=== PATIENT | female | born 1965 | race Caucasian/White ===

== ENCOUNTER 2019-09-18 20:28 | Emergency (ER) | payer OTHER ==
--- NOTE | 2019-09-18 20:40 | PDOC ---
Rapid Medical Evaluation Time Seen by Provider: 09/18/19 20:31 Medical Evaluation: 09/18/19 20:37 I performed a brief in-person evaluation of this patient. Pt is a 54 y/o female who presents to the ED with complaint of left lower gum pain for the last 2 days. She denies any fevers or drainage. The patient has a history of MS, HTN, HLD, depression and anxiety. Pertinent physical exam findings: No discrete abscess seen, no facial asymmetry I have ordered the following: none Patient to proceed to ED for further evaluation. Discharge Disposition - Diagnosis Pain of gingiva - Referrals - Patient Instructions - Post Discharge Activity
[2019-09-18 20:48] VITALS: BP 132/90; PULSE 113; TEMP 98; BMI 52.2
--- NOTE | 2019-09-18 21:05 | PDOC ---
History of Present Illness - General Chief Complaint: Pain Stated Complaint: GUM PAIN Time Seen by Provider: 09/18/19 20:31 History Source: Patient Exam Limitations: No Limitations - History of Present Illness Initial Comments: 09/18/19 21:02 54-year-old female presents to the ED with intermittent left lower quadrant swelling and tooth pain since . Patient tried calling her dentist but was unable to see her. Patient denies fever but does state discomfort with movement. Patient states has taken penicillin VK in the past and responded well to it. Is this a multiple visit Asthma Patient?: No Timing/Duration: unsure Severity: mild Associated Symptoms: reports: denies symptoms Past History - Travel History Traveled outside of the country in the last 30 days: No Close contact w/someone who was outside of country & ill: No - Medical History Allergies/Adverse Reactions: Allergies Allergy/AdvReac Type Severity Reaction Status Date / Time No Known Allergies Allergy Verified 09/18/19 20:40 COPD: No HTN: Yes Psychiatric Problems: Yes (Depression, anxiety) Other medical history: Multiple Sclerosis - Surgical History Cholecystectomy: Yes - Psycho-Social/Smoking History Lives with/in: parents Smoking History: Never smoked - Substance Abuse Hx (Audit-C & DAST Scrn) How often the patient has a drink containing alcohol: Never Score: In Men: 4 or > Positive; In Women: 3 or > Positive: 0 Screen Result (Pos requires Nsg. Audit-10AR): Negative Review of Systems - Review of Systems Able to Perform ROS?: No Constitutional: No: Symptoms Reported HEENTM: Yes: Mouth Pain, Dental Problems Cardiac (ROS): No: Symptoms Reported Integumentary: Yes: Lumps Neurological: No: Symptoms reported *Physical Exam - Vital Signs Last Vital Signs Temp Pulse Resp BP Pulse Ox 98 F 113 H 20 132/90 97 09/18/19 20:41 09/18/19 20:41 09/18/19 20:41 09/18/19 20:41 09/18/19 20:41 - Physical Exam General Appearance: Yes: Nourished, Appropriately Dressed. No: Apparent Distress HEENT: positive: Other (Noted small raised area to the mandible region of the left lower quadrant oral cavity intact with no obvious abscess or decay/broken teeth. ). negative: Pale Conjunctivae Neck: positive: Lymphadenopathy (L) (Upper cervical) Respiratory/Chest: positive: Lungs Clear, Normal Breath Sounds. negative: Respiratory Distress, Accessory Muscle Use Cardiovascular: positive: Regular Rhythm, Tachycardia. negative: Murmur Integumentary: positive: Swelling Neurologic: positive: Motor Strength 5/5 (Ambulatory) Medical Decision Making - Medical Decision Making 09/18/19 21:03 Chief complaint: Dental pain with lump intermittently since . Unable to see dentist. Exam. Patient with noted small firm area to the left mandible left lower quadrant region oral cavity intact. Plan: Patient will be given prescription for Pen-Vee K and follow-up with a dentist next week Discharge - Discharge Information Problems reviewed: Yes Clinical Impression/Diagnosis: Abscess Condition: Good Disposition: HOME - Follow up/Referral Referrals: Edwin Vázquez MD [Primary Care Provider] - - Patient Discharge Instructions Patient Printed Discharge Instructions: Tooth Abscess Additional Instructions: Please take medication as prescribed. Please gargle with warm salt water. Avoid eating on that side. Follow-up with your dentist. - Post Discharge Activity
== END 2019-09-18 21:08 | disposition home or self-care (01) ==
LOC: JERFT 20:28 → JER 20:28 → JERFT 21:08
DX: K08.89 Other specified disorders of teeth and supporting structures (principal)
CPT/HCPCS: 99282-25

== ENCOUNTER 2021-05-15 05:15 | Day surgery (SDC) | payer OTHER ==
[2021-05-09 18:00] VITALS: BMI 34.3
[2021-05-15] MEDS ORDERED: PROPOFOL 20 ML ONE ×4 (10:14→11:06)
[2021-05-15] MEDS ORDERED: MIDAZOLAM HCL 2 MG/2 ML SINGLE DOSE VIAL ONE (10:14)
[2021-05-15] MEDS ORDERED: ceFAZolin SODIUM 1 GM VIAL IVPB ONE (10:30)
[2021-05-15] MEDS ORDERED: ELECTROLYTE-148 SOLN 1,000 ML IV SCH (11:00)
[2021-05-15 12:33] VITALS: BP 135/60; PULSE 65; TEMP 97.4
== END 2021-05-15 12:45 | disposition home or self-care (01) ==
LOC: JASU-SURG 05:15
PROVIDERS: ATTEND Urology
PROC: 0TF7XZZ Fragmentation in Left Ureter, External Approach (ICD-10-PCS; principal; 2021-05-15 10:00)
DX: N13.2 Hydronephrosis with renal and ureteral calculous obstruction (principal)
CPT/HCPCS: 36415; 84703

== ENCOUNTER 2021-06-26 04:12 | Day surgery (SDC) | payer OTHER ==
[2021-06-22 13:06] VITALS: BMI 34.8
[2021-06-26] MEDS ORDERED: MIDAZOLAM HCL 2 MG/2 ML SINGLE DOSE VIAL ONE ×2 (10:18→11:14)
[2021-06-26] MEDS ORDERED: ceFAZolin 2 GRAM PREMIX BAG IVPB ONE ×2 (10:39→11:03)
[2021-06-26] MEDS ORDERED: ELECTROLYTE-148 SOLN 1,000 ML IV SCH (11:00)
[2021-06-26] MEDS ORDERED: PHENYLEPHRINE HCL 10 MG/1 ML SINGLE DOSE VIAL ONE (11:39)
[2021-06-26 14:10] VITALS: BP 118/65; PULSE 93; TEMP 98.2
== END 2021-06-26 14:20 | disposition home or self-care (01) ==
LOC: JASU-SURG 04:12
PROVIDERS: ATTEND Urology
PROC: 0TF7XZZ Fragmentation in Left Ureter, External Approach (ICD-10-PCS; principal; 2021-06-26 10:15)
DX: N20.1 Calculus of ureter (principal)
CPT/HCPCS: 36415; 84703; 94760